=== PATIENT | male | born 1975 | race Hispanic/Latino ===

== ENCOUNTER 2018-09-07 11:36 | Emergency (ER) | payer SELFPAY ==
[~2018-09-07] VITALS: Ht 188 cm; Wt 99.8 kg
[2018-09-07] MEDS ORDERED: TRAMADOL HCL 50 MG TAB PO NR (11:45)
--- NOTE | 2018-09-07 13:27 | Diagnostic Imaging Report ---
Left ankle, 3 views. History: Ankle trauma 2 days ago. Findings: There is mild generalized soft tissue swelling. Bone mineralization is normal. There is no evidence of acute fracture or dislocation. Corticated osseous densities are seen adjacent to the medial malleolus, likely due to old trauma. There are no lytic or sclerotic lesions. Mild degenerative changes are present. Posterior and plantar calcaneal spurs are present. IMPRESSION: No acute osseous abnormality. Signed by: Herb Kowalski on 09/07/2018 1:24 PM
[2018-09-07 13:39] VITALS: BP 128/90
== END 2018-09-07 13:40 | disposition home or self-care (01) ==
LOC: ER 11:36
DX: S90.02XA Contusion of left ankle, initial encounter (principal); W22.8XXA Striking against or struck by other objects, initial encounter; Y99.0 Civilian activity done for income or pay; I10 Essential (primary) hypertension; E11.9 Type 2 diabetes mellitus without complications
CPT/HCPCS: 99284